=== PATIENT | male | born 1980 | race Two or more races ===

== ENCOUNTER 2017-03-13 11:28 | Emergency (ER) | payer OTHER ==
[~2017-03-13] VITALS: Ht 167.6 cm; Wt 65.8 kg
[2017-03-13] MEDS ORDERED: IBUP800 PO (11:48)
[2017-03-13] MEDS ORDERED: METPRE4DP PO (11:48)
[2017-03-13] MEDS ORDERED: Voltaren100 GM TOP (11:59)
== END 2017-03-13 12:19 | disposition home or self-care (01) ==
LOC: ER 11:28
DX: M54.41 Lumbago with sciatica, right side (principal); Z87.891 Personal history of nicotine dependence; Z79.1 Long term (current) use of non-steroidal anti-inflammatories (NSAID); Z79.899 Other long term (current) drug therapy
CPT/HCPCS: 96372; 99283; J1885

== ENCOUNTER 2017-03-21 13:07 | Emergency (ER) | payer OTHER ==
[~2017-03-21] VITALS: Ht 167.6 cm; Wt 65.8 kg
[~2017-03-21 13:07] MED LIST: IBUP800 PO; METPRE4DP PO; Voltaren100 GM TOP
[2017-03-21] MEDS ORDERED: Robaxin-750750 MG PO (16:03)
[2017-03-21] MEDS ORDERED: Norco 5-325 Ta1 EACH PO (16:03)
== END 2017-03-21 16:22 | disposition home or self-care (01) ==
LOC: ER 13:07
DX: M54.16 Radiculopathy, lumbar region (principal); Z79.899 Other long term (current) drug therapy; Z87.891 Personal history of nicotine dependence
CPT/HCPCS: 72100; 96372; 99284; J1170; J1885

== ENCOUNTER 2017-04-04 12:15 | Emergency (ER) | payer OTHER ==
[~2017-04-04] VITALS: Ht 165.1 cm; Wt 74.8 kg
[~2017-04-04 12:15] MED LIST changes: +Norco 5-325 Ta1 EACH PO; +Robaxin-750750 MG PO
[2017-04-04] MEDS ORDERED: Naprosyn500 MG PO (13:21)
[2017-04-04] MEDS ORDERED: CYCL10 PO (13:21)
[2017-04-04] MEDS ORDERED: Prednisone20 MG PO (13:21)
== END 2017-04-04 13:27 | disposition home or self-care (01) ==
LOC: ER 12:15
DX: M54.31 Sciatica, right side (principal); Z87.891 Personal history of nicotine dependence
CPT/HCPCS: 96372; 99283; J1885

== ENCOUNTER 2017-04-17 16:59 | Emergency (ER) | payer OTHER ==
[~2017-04-17] VITALS: Ht 170.2 cm; Wt 70.0 kg
[~2017-04-17 16:59] MED LIST changes: +CYCL10 PO; +Naprosyn500 MG PO; +Prednisone20 MG PO
[2017-04-17] MEDS ORDERED: Norco 5-325 Ta1 EACH PO (18:58)
[2017-04-17] MEDS ORDERED: Robaxin500 MG PO (18:58)
[2017-04-17] MEDS ORDERED: LIDO700A20 TOP (18:58)
[2017-04-17] MEDS ORDERED: Prednisone20 MG PO (18:58)
== END 2017-04-17 19:29 | disposition home or self-care (01) ==
LOC: ER 16:59
DX: M54.41 Lumbago with sciatica, right side (principal); Z79.899 Other long term (current) drug therapy; Z79.52 Long term (current) use of systemic steroids; Z87.891 Personal history of nicotine dependence
CPT/HCPCS: 73552; 73590; 96372; 99284; J1885